=== PATIENT | female | born 1950 | race Caucasian/White ===

== ENCOUNTER 2018-04-06 07:03 | Emergency (ER) | payer MEDICARE, BC, SELFPAY ==
[2018-04-06] VITALS (20 sets, daily range): BP systolic 146–205; BP diastolic 95–110; PULSE 64–89; RESP 12–22; TEMP 37.1; O2SAT 91–95
--- NOTE | 2018-04-06 07:34 | W.ED.GENAD ---
Discharge Plan Disposition Patient Disposition: HOME Condition: Good Discharge Details Chief Complaint: AMS/LOC Clinical Impression: Anxiety, Hypertension Primary Care Provider: Brigido Mascorro ED Provider: Saurabh Sheffield Home Meds and New Rx's Prescriptions: No Action aspirin 325 MG tablet 81 mg PO DAILY RF: 0 levothyroxine 200 MCG tablet 200 mcg PO DAILY Qty: 90 RF: 4 hydrochlorothiazide 25 mg tablet 25 mg PO QAM Qty: 90 RF: 4 lisinopril 5 mg tablet 5 mg PO DAILY Qty: 90 RF: 4 bupropion HCl [Wellbutrin XL] 300 mg tablet extended release 24 hr 300 mg PO DAILY Qty: 90 RF: 3 fluocinonide-emollient [Fluocinonide-E] 0.05 % cream 1 applic Topical BID Qty: 60 RF: 2 diphenhydramine HCl 25 MG capsule 50 mg PO PRN PRNRF: 0 Discharge Instructions Instructions: Hypertension (ED), Anxiety (ED) Additional Instructions: If you notice any worsening of your symptoms, or any new symptoms such as vomiting, diarrhea, fever, chills, shortness of breath, chest pain, numbness, weakness, or fainting , please return immediately to the emergency department for reevaluation. Please follow up with your primary care provider tomorrow or as soon as possible for reassessment and reevaluation. As always, it was a pleasure participating in your medical care today. Referrals: Brigido Mascorro MD [Primary Care Provider] - Medical Decision Making <Rey Peterson MD - Last Filed: 04/06/18 07:46> 67-year-old female presents with her stating that she has had a great deal of stress in her life recently and this morning while driving to work abruptly became confused with increased anxiety and now has transient amnesia of the mornings events. States this is happened 2 times in the past without significant finding. She states that she has had stress due to bills and stress in the home. She is hypertensive at 200/100 and extremely anxious when I walk into the room. Her vital signs are otherwise unremarkable and her neurologic exam is normal. Differential diagnosis would include acute stress reaction, transient global amnesia, must exclude intracranial hemorrhage or mass. Patient had IV access established, referred for laboratory testing, screening EKG, CT scan of the head. She is given a small amount of anxiolytic. Case to be signed out to Dr. Gant, please see his note regarding details of the patient's diagnostic findings and final disposition. ECG Data Attestation: I personally reviewed and interpreted this ECG (s) as follows: Interpretation: Normal sinus rhythm, rate of 74, QRS is narrow, there is no ST segment <Saurabh Sheffield DO - Last Filed: 04/06/18 09:09> The case is signed out to myself by Dr. Rey Peterson pending workup. The patient CT scan laboratory workup and exam have returned benign. Patient's blood pressure has completely normalized with a small dose of Ativan and no antihypertension medications.. Per Dr. Marks the patient's CT results demonstrate no evidence of acute process, bleed, or stroke. He did go in and reassessed the patient personally there is no clinical evidence of neurologic deficit, the patient's symptoms have notably improved and her blood pressure is normalized. With a benign workup, and no focal neurologic deficit, I feel that the patient signs and symptoms are clinically consistent with anxiety, and mild global transient amnesia which has now notably improved/resolved. The patient signs and symptoms are clinically inconsistent with a stroke at this time. I had a long conversation/that down with the patient and her family, and after discussing the workup and her current clinical improvement family would like to take the patient home and allow her to rest. I think this is very reasonable, and appropriate. I do not feel that any additional imaging or workup is indicated at this time, this patient's symptoms are consistent with her previous episodes, also consistent with acute neurologic deficit. In addition to this, the patient's headache is completely resolved and she demonstrates signs and symptoms clinically inconsistent with aneurysm, ruptured aneurysm or bleed. I do feel that though close follow-up with the patient's primary care provider is certainly indicated and important. We discussed ways to decrease stressors in life, and patient family understand. Had a long discussion regarding red flags which to return and they understand. I have extensively reviewed the treatment plan and discharge instructions with the patient and their family. I have addressed all patient concerns at this time. The patient and family was made aware of what symptoms to monitor for that would warrant a return to the emergency department. Discussed the plan with the patient and family, they demonstrate verbal understanding and agreement with our assessment and plan at this time. HPI <Rey Peterson MD - Last Filed: 04/06/18 07:46> General Mode of arrival: ambulatory. Date/Time Provider Initiated Documentation: 04/06/18 07:03. Limitations to Documentation: no limitations. Information obtained by: patient. History of Present Illness 67 year old F presents to the emergency department with the chief complaint of Anxious and confused while driving to work, described as moderate and similar to prior episodes, and is localized to the head. Patient started experiencing this minute(s) and it has been now resolved. No relieving factors improve symptom(s), No exacerbating factors reported . Patient notes no other symptoms.; denies fever/chills and headaches. Patient did receive the following treatments prior to arrival, none Related Data Home Medications Medication Instructions Recorded Confirmed diphenhydramine HCl 50 mg PO PRN PRN 12/04/12 04/06/18 aspirin 81 mg PO DAILY tab-cap 12/08/12 04/06/18 levothyroxine 200 mcg PO DAILY #90 tab-cap 08/10/17 04/06/18 hydrochlorothiazide 25 mg tablet 25 mg PO QAM #90 tab 12/19/17 04/06/18 lisinopril 5 mg tablet 5 mg PO DAILY #90 tab-cap 18 04/06/18 bupropion HCl XL 300 mg 24 hr 300 mg PO DAILY #90 tab-cap 02/17/18 04/06/18 tablet, extended release fluocinonide-emollient 0.05 % 1 applic TOPICAL BID #60 gm 03/29/18 04/06/18 topical cream Previous Rx's Medication Instructions Recorded levothyroxine 200 mcg PO DAILY #90 tab-cap 08/10/17 hydrochlorothiazide 25 mg tablet 25 mg PO QAM #90 tab 12/19/17 lisinopril 5 mg tablet 5 mg PO DAILY #90 tab-cap 12/19/17 bupropion HCl XL 300 mg 24 hr 300 mg PO DAILY #90 tab-cap 02/17/18 tablet, extended release fluocinonide-emollient 0.05 % 1 applic TOPICAL BID #60 gm 03/29/18 topical cream Allergies Allergy/AdvReac Type Severity Reaction Status Date / Time latex Allergy Intermediate RASH Unverified 04/06/18 07:27 Penicillins Allergy Intermediate SWELLING Unverified 04/06/18 07:27 bacitracin Allergy Unknown Unverified 04/06/18 07:27 polymyxin B Allergy Unknown Unverified 04/06/18 07:27 General Stated Complaint: AMS/LOC RAMON: 2 Review of Systems <Rey Peterson MD - Last Filed: 04/06/18 07:46> Review of Systems 6 systems reviewed and otherwise - [facility] <Rey Peterson MD - Last Filed: 04/06/18 07:46> Family History Mother No problems noted. Father No problems noted. Sister No problems noted. Grandfather Heart disease Grandfather Personal history of malignant neoplasm Grandmother No problems noted. Grandmother No problems noted. Daughter Mental disorder Daughter No problems noted. Social History Smoking and Tabacco status: Current every day Exam <Rey Peterson MD - Last Filed: 04/06/18 07:46> Narrative Exam Narrative: GEN: awake, alert, oriented 3. Pleasant, well groomed, interactive, anxious. HEAD: Normocephalic, atraumatic ENT: Mucous membranes moist, oropharynx unremarkable, External ear exam unremarkable EYES: PERRL, EOMI NECK: Full ROM, no KEVIN, no menigismus CHEST/RESP: Nontender, clear to auscultation bilateral, no wheeze/rhonchi/rales CARDIOVASCULAR: RRR, no murmur, rub ray. 2+ Rad pulse bilateral ABDOMEN: Soft, nontender, no mass. +Bowel sounds EXT: Full ROM, no edema, no rash Neuro: Grossly normal neurologic exam, conversant, interactive. Psych: Speech fluent, thoughts congruent, affect anxious Course <Rey Peterson MD - Last Filed: 04/06/18 07:46> Vital Signs Temperature 37.1 C 04/06/18 07:24 Pulse 76 04/06/18 07:24 Respiratory Rate 16 04/06/18 07:24 Blood Pressure 205/109 H 04/06/18 07:24 Pulse Oximetry 95 04/06/18 07:24 Temperature 37.1 C 04/06/18 07:24 Temperature Source Skin 04/06/18 07:24 Pulse 76 04/06/18 07:24 Respiratory Rate 16 04/06/18 07:24 Respiratory Effort 04/06/18 07:24 Blood Pressure 205/109 H 04/06/18 07:24 Blood Pressure Position Supine 04/06/18 07:24 Pulse Oximetry 95 04/06/18 07:24 Oxygen Delivery Method Room Air 04/06/18 07:24 Oxygen Flow Rate 0 04/06/18 07:24 Pain Level 0 04/06/18 07:24
--- NOTE | 2018-04-06 07:37 | ED.GENADUL_ITS ---
Addendum entered and electronically signed by Saurabh Sheffield DO 04/06/18 09:16: I forgot to add this before signing my note. Focused neurologic exam on assessment prior to discharge: All 6 cardinal planes of vision are fully intact. No evidence of rotatory or vertical nystagmus. The patient demonstrated a normal [id number], good dexterity. There was no evidence of dysdiadochokinesia. Patient was able to ambulate without difficulty. There was no wide-based gait. Romberg, and ntxr-[id number] are both normal on testing. Sensation was intact bilaterally as well as muscle strength bilaterally for all extremities. Patient was able to verbalize butter cup with no slurring, or miss pronunciation. Original Note: Discharge Plan Disposition Patient Disposition: HOME Condition: Good Discharge Details Chief Complaint: AMS/LOC Clinical Impression: Anxiety, Hypertension Primary Care Provider: Brigido Mascorro ED Provider: Saurabh Sheffield Home Meds and New Rx's Prescriptions: No Action aspirin 325 MG tablet 81 mg PO DAILY RF: 0 levothyroxine 200 MCG tablet 200 mcg PO DAILY Qty: 90 RF: 4 hydrochlorothiazide 25 mg tablet 25 mg PO QAM Qty: 90 RF: 4 lisinopril 5 mg tablet 5 mg PO DAILY Qty: 90 RF: 4 bupropion HCl [Wellbutrin XL] 300 mg tablet extended release 24 hr 300 mg PO DAILY Qty: 90 RF: 3 fluocinonide-emollient [Fluocinonide-E] 0.05 % cream 1 applic Topical BID Qty: 60 RF: 2 diphenhydramine HCl 25 MG capsule 50 mg PO PRN PRNRF: 0 Discharge Instructions Instructions: Hypertension (ED), Anxiety (ED) Additional Instructions: If you notice any worsening of your symptoms, or any new symptoms such as vomiting, diarrhea, fever, chills, shortness of breath, chest pain, numbness, weakness, or fainting , please return immediately to the emergency department for reevaluation. Please follow up with your primary care provider tomorrow or as soon as possible for reassessment and reevaluation. As always, it was a pleasure participating in your medical care today. Referrals: Brigido Mascorro MD [Primary Care Provider] - Medical Decision Making <Rey Peterson MD - Last Filed: 02/14/19 07:46> 67-year-old female presents with her stating that she has had a great deal of stress in her life recently and this morning while driving to work abruptly became confused with increased anxiety and now has transient amnesia of the mornings events. States this is happened 2 times in the past without significant finding. She states that she has had stress due to bills and stress in the home. She is hypertensive at 200/100 and extremely anxious when I walk into the room. Her vital signs are otherwise unremarkable and her neurologic exam is normal. Differential diagnosis would include acute stress reaction, transient global amnesia, must exclude intracranial hemorrhage or mass. Patient had IV access established, referred for laboratory testing, screening EKG, CT scan of the head. She is given a small amount of anxiolytic. Case to be signed out to Dr. Gant, please see his note regarding details of the patient's diagnostic findings and final disposition. ECG Data Attestation: I personally reviewed and interpreted this ECG (s) as follows: Interpretation: Normal sinus rhythm, rate of 74, QRS is narrow, there is no ST segment <Saurabh Sheffield DO - Last Filed: 04/06/18 09:09> The case is signed out to myself by Dr. Rey Peterson pending workup. The patient CT scan laboratory workup and exam have returned benign. Patient's blood pressure has completely normalized with a small dose of Ativan and no antihypertension medications.. Per Dr. Marks the patient's CT results demonstrate no evidence of acute process, bleed, or stroke. He did go in and reassessed the patient personally there is no clinical evidence of neurologic deficit, the patient's symptoms have notably improved and her blood pressure is normalized. With a benign workup, and no focal neurologic deficit, I feel that the patient signs and symptoms are clinically consistent with anxiety, and mild global transient amnesia which has now notably improved/resolved. The patient signs and symptoms are clinically inconsistent with a stroke at this time. I had a long conversation/that down with the patient and her family, and after discussing the workup and her current clinical improvement family would like to take the patient home and allow her to rest. I think this is very reasonable, and appropriate. I do not feel that any additional imaging or workup is indicated at this time, this patient's symptoms are consistent with her previous episodes, also consistent with acute neurologic deficit. In addition to this, the patient's headache is completely resolved and she demonstrates signs and symptoms clinically inconsistent with aneurysm, ruptured aneurysm or bleed. I do feel that though close follow-up with the patient's primary care provider is certainly indicated and important. We discussed ways to decrease stressors in life, and patient family understand. Had a long discussion regarding red flags which to return and they understand. I have extensively reviewed the treatment plan and discharge instructions with the patient and their family. I have addressed all patient concerns at this time. The patient and family was made aware of what symptoms to monitor for that would warrant a return to the emergency department. Discussed the plan with the patient and family, they demonstrate verbal understanding and agreement with our assessment and plan at this time. HPI <Rey Peterson MD - Last Filed: 04/06/18 07:46> General Mode of arrival: ambulatory . Date/Time Provider Initiated Documentation: 04/06/18 07:03 . Limitations to Documentation: no limitations . Information obtained by: patient . History of Present Illness 67 year old F presents to the emergency department with the chief complaint of Anxious and confused while driving to work, described as moderate and similar to prior episodes, and is localized to the head. Patient started experiencing this minute(s) and it has been now resolved. No relieving factors improve symptom(s), No exacerbating factors reported . Patient notes no other symptoms.; denies fever/chills and headaches. Patient did receive the following treatments prior to arrival, none Related Data Home Medications Medication Instructions Recorded Confirmed diphenhydramine HCl 50 mg PO PRN PRN 12/04/12 04/06/18 aspirin 81 mg PO DAILY tab-cap 12/08/12 04/06/18 levothyroxine 200 mcg PO DAILY #90 tab-cap 08/10/17 04/06/18 hydrochlorothiazide 25 mg tablet 25 mg PO QAM #90 tab 12/19/17 04/06/18 lisinopril 5 mg tablet 5 mg PO DAILY #90 tab-cap 12/19/17 04/06/18 bupropion HCl XL 300 mg 24 hr 300 mg PO DAILY #90 tab-cap 02/17/18 04/06/18 tablet, extended release fluocinonide-emollient 0.05 % 1 applic TOPICAL BID #60 gm 02/06/19 02/14/19 topical cream Previous Rx's Medication Instructions Recorded levothyroxine 200 mcg PO DAILY #90 tab-cap 08/10/17 hydrochlorothiazide 25 mg tablet 25 mg PO QAM #90 tab 12/19/17 lisinopril 5 mg tablet 5 mg PO DAILY #90 tab-cap 12/19/17 bupropion HCl XL 300 mg 24 hr 300 mg PO DAILY #90 tab-cap 02/17/18 tablet, extended release fluocinonide-emollient 0.05 % 1 applic TOPICAL BID #60 gm 03/29/18 topical cream Allergies Allergy/AdvReac Type Severity Reaction Status Date / Time latex Allergy Intermediate RASH Unverified 04/06/18 07:27 Penicillins Allergy Intermediate SWELLING Unverified 04/06/18 07:27 bacitracin Allergy Unknown Unverified 04/06/18 07:27 polymyxin B Allergy Unknown Unverified 04/06/18 07:27 General Stated Complaint: AMS/LOC RAMON: 2 Review of Systems <Rey Peterson MD - Last Filed: 04/06/18 07:46> Review of Systems 6 systems reviewed and otherwise - [facility] <Rey Peterson MD - Last Filed: 04/06/18 07:46> Family History Mother No problems noted. Father No problems noted. Sister No problems noted. Grandfather Heart disease Grandfather Personal history of malignant neoplasm Grandmother No problems noted. Grandmother No problems noted. Daughter Mental disorder Daughter No problems noted. Social History Smoking and Tabacco status: Current every day Exam <Rey Peterson MD - Last Filed: 04/06/18 07:46> Narrative Exam Narrative: GEN: awake, alert, oriented 3. Pleasant, well groomed, interactive, anxious. HEAD: Normocephalic, atraumatic ENT: Mucous membranes moist, oropharynx unremarkable, External ear exam unremarkable EYES: PERRL, EOMI NECK: Full ROM, no KEVIN, no menigismus CHEST/RESP: Nontender, clear to auscultation bilateral, no wheeze/rhonchi/rales CARDIOVASCULAR: RRR, no murmur, rub ray. 2+ Rad pulse bilateral ABDOMEN: Soft, nontender, no mass. +Bowel sounds EXT: Full ROM, no edema, no rash Neuro: Grossly normal neurologic exam, conversant, interactive. Psych: Speech fluent, thoughts congruent, affect anxious Course <Rey Peterson MD - Last Filed: 04/06/18 07:46> Vital Signs Temperature 37.1 C 04/06/18 07:24 Pulse 76 04/06/18 07:24 Respiratory Rate 16 04/06/18 07:24 Blood Pressure 205/109 H 04/06/18 07:24 Pulse Oximetry 95 04/06/18 07:24 Temperature 37.1 C 04/06/18 07:24 Temperature Source Skin 04/06/18 07:24 Pulse 76 04/06/18 07:24 Respiratory Rate 16 04/06/18 07:24 Respiratory Effort 04/06/18 07:24 Blood Pressure 205/109 H 04/06/18 07:24 Blood Pressure Position Supine 04/06/18 07:24 Pulse Oximetry 95 04/06/18 07:24 Oxygen Delivery Method Room Air 04/06/18 07:24 Oxygen Flow Rate 0 04/06/18 07:24 Pain Level 0 04/06/18 07:24
[2018-04-06] MEDS: LORazepam 2 MG/ML VIAL 0.5 MG IVP (07:55)
[2018-04-06 07:57] LABS: Abs Immature Grans 0.01 k/cumm (0.0-0.09); Absolute Basophil Count 0.01 k/cumm (0.0-0.2); Absolute Eosinophil Count 0.11 k/cumm (0.0-0.7); Absolute Lymphocyte Count 0.93 k/cumm (1.2-3.4); Absolute Neutrophil Count 3.87 k/cumm (1.2-6.7); Basophils % 0.2; Eosinophils % 2.1; HGB 14.8 g/dL (12.0-15.5); Immature Grans % 0.2; Lymphocytes % 17.8; Mean Corp. HGB Concentration 33.6 g/dL (32.0-36.0); Mean Corpuscular Hemoglobin 32.3 pg (27.0-33.0); Mean Corpuscular Volume 96.1 fL (80-95); Mean Platelet Volume 9.9 fL (8.0-11.0); Monocytes % 5.7; Platelet Count 177 x1000/uL (130-400); RBC 4.58 m/cumm (4.00-5.20); RBC Distribution Width 14.1 % (11.7-14.6); White Blood Cell Count 5.23 k/cumm (4.4-10.8)
--- NOTE | 2018-04-06 08:10 | DI.CT_ITS ---
SYMPTOM/DIAGNOSIS: TRANSIENT AMNESIA CRANIAL CT (WITHOUT CONTRAST): A noncontrast cranial CT was performed. The ventricular system is normal in appearance. There is no evidence of an intracranial mass lesion. There is no evidence of a subdural or epidural hematoma. No focal areas of decreased attenuation are seen. CONCLUSION: Normal noncontrast Cranial CT.
[2018-04-06 08:17] LABS: ALT 20 U/L (12-78); AST 14 U/L (15-37); Albumin 3.5 g/dL (3.4-5.0); Alkaline Phosphatase 71 U/L (46-116); BUN 20 mg/dL (7-18); Bilirubin, Total 0.3 mg/dL (0.2-1.0); CREATININE 0.76 mg/dL (0.55-1.02); Calcium 9.1 mg/dL (8.5-10.1); Chloride 105 mmol/L (98-107); Glucose 97 mg/dL (70-100); Potassium 3.6 mmol/L (3.5-5.1); Sodium 144 mmol/L (136-145)
[2018-04-06 08:19] LABS: Troponin I < 0.02 ng/mL (0.00-0.06)
== END 2018-04-06 09:17 | disposition home or self-care (01) ==
PROVIDERS: Emergency Medicine; Emergency Provider Student in an Organized Health Care Education/Training Program; PCP Family Medicine
DX: F41.9 Anxiety disorder, unspecified (principal); I10 Essential (primary) hypertension
CPT/HCPCS: 80053; 96374; 99285; 70450; 83735; 84484; 85025; J2060

== ENCOUNTER 2020-07-02 03:00 | Outpatient (CLI) | payer MEDICARE, BC, SELFPAY ==
[2020-07-02 12:28] LABS: HCT 47.9 % (36.0-46.0); HGB 15.8 g/dL (11.2-15.7); MCH 32.2 pg (27.0-33.0); MCV 97.8 fL (80-95); MPV 11.1 fL (8.0-11.0); Platelet Count 210 10^3/uL (130-400); RDW 14.2 % (11.7-14.6); RDW-SD 51.6 fL; WBC 6.51 10^3/uL (4.4-10.8)
[2020-07-02 13:16] LABS: ALT 24 U/L (14-59); AST 14 U/L (15-37); Albumin 3.9 g/dL (3.4-5.0); Alkaline Phosphatase 72 U/L (46-116); Anion Gap 8.3 mmol/L (3-11); BUN 25 mg/dL (7-18); Bilirubin, Total 0.4 mg/dL (0.2-1.0); CO2 30.7 mmol/L (21.0-32.0); CREATININE 0.8 mg/dL (0.55-1.02); Calcium 9.4 mg/dL (8.5-10.1); Chloride 105 mmol/L (98-107); Glucose 88 mg/dL (74-106); Potassium 3.8 mmol/L (3.5-5.1); Sodium 144 mmol/L (136-145); TSH (W/Ref FT4) 0.12 uIU/mL (0.36-3.74)
[2020-07-02 13:38] LABS: FREE T4 1.62 ng/dL (0.76-1.46)
== END 2020-07-02 03:01 | disposition home or self-care (01) ==
LOC: LOS 03:01
DX: R53.83 Other fatigue (principal); G47.00 Insomnia, unspecified; I10 Essential (primary) hypertension; E03.9 Hypothyroidism, unspecified; E78.5 Hyperlipidemia, unspecified; F41.8 Other specified anxiety disorders
CPT/HCPCS: 36415; 80053; 80061; 85027; 84439; 84443

== ENCOUNTER 2020-08-29 01:09 | Outpatient (CLI) | payer MEDICARE, BC, SELFPAY ==
[2020-08-29 14:09] LABS: TSH (W/Ref FT4) 0.05 uIU/mL (0.36-3.74)
[2020-08-29 14:26] LABS: FREE T4 1.87 ng/dL (0.76-1.46)
[2020-08-29 20:16] LABS: Calculated LDL 162 mg/dL (<100); Cholesterol 231 mg/dL (<200); HDL Cholesterol 35 mg/dL (40-60); Triglyceride 173 mg/dL (<150)
== END 2020-08-29 01:10 | disposition home or self-care (01) ==
LOC: LOS 01:09
DX: E78.5 Hyperlipidemia, unspecified (principal); E03.9 Hypothyroidism, unspecified
CPT/HCPCS: 36415; 80061; 84439; 84443

== ENCOUNTER 2020-10-23 03:12 | Outpatient (CLI) | payer MEDICARE, BC, SELFPAY ==
[2020-10-23 13:18] LABS: TSH (W/Ref FT4) 0.43 uIU/mL (0.36-3.74)
== END 2020-10-23 03:13 | disposition home or self-care (01) ==
LOC: LOS 03:13
DX: G47.00 Insomnia, unspecified (principal); E03.9 Hypothyroidism, unspecified
CPT/HCPCS: 36415; 84443

== ENCOUNTER 2021-01-23 04:07 | Outpatient (CLI) | payer MEDICARE, BC, SELFPAY | END 2021-01-23 04:08 | disposition home or self-care (01) | LOC: LOS 04:07 | DX: E03.9 Hypothyroidism, unspecified (principal) | CPT/HCPCS: 36415; 84443 ==

== ENCOUNTER 2023-01-04 15:28 | Outpatient (REF) | payer MEDICARE, BC, SELFPAY ==
[2023-01-04 21:46] LABS: ALT 21 U/L (14-59); AST 13 U/L (15-37); Albumin 3.7 g/dL (3.4-5.0); Alkaline Phosphatase 73 U/L (46-116); Anion Gap 9.8 mmol/L (3-11); BUN 15 mg/dL (7-18); Bilirubin, Total 0.4 mg/dL (0.2-1.0); CO2 27.2 mmol/L (21.0-32.0); CREATININE 0.7 mg/dL (0.55-1.02); Calcium 9.5 mg/dL (8.5-10.1); Calculated LDL 162 mg/dL (<100); Chloride 102 mmol/L (98-107); Cholesterol 254 mg/dL (<200); Estimated GFR 92.98 (mL/min/1.73m2); Glucose 94 mg/dL (74-106); HDL Cholesterol 53 mg/dL (40-60); Potassium 3.7 mmol/L (3.5-5.1); Sodium 139 mmol/L (136-145); TSH (W/Ref FT4) 23.68 uIU/mL (0.36-3.74); Total Protein 7.7 g/dL (6.4-8.2); Triglyceride 195 mg/dL (<150)
== END 2023-01-04 15:29 | disposition home or self-care (01) ==
LOC: LBN 15:28
PROVIDERS: PCP Nurse Practitioner Family; Visit Provider Nurse Practitioner Family
DX: E78.5 Hyperlipidemia, unspecified (principal); E03.9 Hypothyroidism, unspecified; I10 Essential (primary) hypertension
CPT/HCPCS: 80053; 80061; 84439; 84443

== ENCOUNTER 2024-01-25 02:33 | Outpatient (CLI) | payer MEDICARE, BC, SELFPAY ==
[2024-01-25 10:26] LABS: Lab Add On Test DONE
[2024-01-25 12:30] LABS: Anion Gap 9.4 mmol/L (3-11); BUN 16 mg/dL (7-18); CO2 29.6 mmol/L (21.0-32.0); CREATININE 0.9 mg/dL (0.55-1.02); Calcium 9.7 mg/dL (8.5-10.1); Chloride 103 mmol/L (98-107); Estimated GFR 68.35 (mL/min/1.73m2); Glucose 117 mg/dL (74-106); Potassium 3.5 mmol/L (3.5-5.1); Sodium 142 mmol/L (136-145)
[2024-01-25 12:45] LABS: TSH (W/Ref FT4) 0.02 uIU/mL (0.36-3.74)
[2024-01-25 13:24] LABS: FREE T4 1.37 ng/dL (0.76-1.46)
== END 2024-01-25 02:34 | disposition home or self-care (01) ==
LOC: LOS 02:33
PROVIDERS: PCP Nurse Practitioner Family; Visit Provider Nurse Practitioner Family
DX: E03.9 Hypothyroidism, unspecified (principal); Z13.1 Encounter for screening for diabetes mellitus
CPT/HCPCS: 36415; 80048; 84439; 84443

== ENCOUNTER 2024-05-01 03:01 | Outpatient (CLI) | payer MEDICARE, BC, SELFPAY ==
[2024-05-01 12:39] LABS: TSH 0.02 uIU/mL (0.36-3.74)
== END 2024-05-01 03:02 | disposition home or self-care (01) ==
LOC: LOS 03:01
PROVIDERS: PCP Nurse Practitioner Family; Visit Provider Nurse Practitioner Family
DX: E03.9 Hypothyroidism, unspecified (principal); R73.9 Hyperglycemia, unspecified
CPT/HCPCS: 36415; 84443

== ENCOUNTER 2024-07-03 15:52 | Outpatient (REF) | payer MEDICARE, BC, SELFPAY ==
[2024-07-04 01:12] LABS: TSH (W/Ref FT4) 0.03 uIU/mL (0.36-3.74)
[2024-07-04 01:42] LABS: FREE T4 1.65 ng/dL (0.76-1.46)
[2024-07-04 05:20] LABS: Calculated LDL 147 mg/dL (<100); Cholesterol 237 mg/dL (<200); HDL Cholesterol 54 mg/dL (>or=50); Triglyceride 183 mg/dL (<150)
== END 2024-07-03 15:53 | disposition home or self-care (01) ==
LOC: LBN 15:52
PROVIDERS: PCP Nurse Practitioner Family; Visit Provider Nurse Practitioner Family
DX: E03.9 Hypothyroidism, unspecified (principal); E78.5 Hyperlipidemia, unspecified
CPT/HCPCS: 80061; 84439; 84443